=== PATIENT | male | born 1980 ===

== ENCOUNTER → 2021-03-30 08:14 | Outpatient (CLI) | payer OTHER | END | disposition home or self-care (01) | LOC: LAB 08:14 → EDSEX 08:14 | PROVIDERS: ATTEND Internal Medicine | DX: E11.9 Type 2 diabetes mellitus without complications (principal); I10 Essential (primary) hypertension; E03.8 Other specified hypothyroidism; E78.2 Mixed hyperlipidemia; E55.9 Vitamin D deficiency, unspecified; N40.0 Benign prostatic hyperplasia without lower urinary tract symptoms ==

== ENCOUNTER 2022-01-08 17:38 | Emergency (ER) | payer OTHER ==
[~2022-01-08] VITALS: Ht 165.1 cm; Wt 79.4 kg
[2022-01-08] MEDS ORDERED: KETO10TA2 PO (23:33)
[2022-01-08] MEDS ORDERED: CIPRO500 MG PO (23:33)
[2022-01-08] MEDS ORDERED: TAMS0.4C PO (23:33)
== END 2022-01-09 00:48 | disposition home or self-care (01) ==
LOC: ER 17:38
DX: N20.0 Calculus of kidney (principal)